=== PATIENT | male | born 1970 | race African-American/Black ===

== ENCOUNTER 2021-11-05 17:05 | Emergency (ER) | payer BC, OTHER ==
[2021-11-05 17:11] VITALS: BP 98/66; PULSE 62; RESP 18; TEMP 98; BMI 33.5
== END 2021-11-05 19:22 | disposition home or self-care (01) ==
LOC: JERFT 17:05
DX: M25.561 Pain in right knee (principal)
CPT/HCPCS: 73562-TC-RT-FY; 99284-25

== ENCOUNTER 2021-12-10 18:38 | Emergency (ER) | payer OTHER, BC ==
[2021-12-10 19:07] VITALS: BP 113/71; PULSE 68; RESP 18; TEMP 98.3; BMI 33.5
[2021-12-10] MEDS ORDERED: KETOROLAC TROMETHAMINE 30 MG/1 ML VIAL IM ONE (20:31)
== END 2021-12-10 20:51 | disposition home or self-care (01) ==
LOC: JERFT 18:38
DX: S83.92XA Sprain of unspecified site of left knee, initial encounter (principal); W01.0XXA Fall on same level from slipping, tripping and stumbling without subsequent striking against object, initial encounter
CPT/HCPCS: 73562-TC-LT-FY; 99283-25

== ENCOUNTER 2023-12-16 05:23 | Emergency (ER) | payer BC, OTHER ==
[2023-12-16 05:28] VITALS: BP 128/57; PULSE 62; RESP 20; TEMP 97.7; BMI 32.1
[2023-12-16] MEDS ORDERED: MECLIZINE HCL 12.5 MG TABLET ONE (06:39)
[2023-12-16] MEDS: MECLIZINE HCL 12.5 MG TABLET PO ONE (06:48)
[2023-12-16 07:03] LABS: BASO % 0.3 % (0-2.0); EOS % 1.6 % (0-4.5); HEMATOCRIT 40.5 % (35.4-49); HEMOGLOBIN 13.5 GM/dL (11.7-16.9); LYMPH % 21.7 % (8-40); MCH 31.2 pg (25.7-33.7); MCHC 33.3 g/dl (32.0-35.9); MEAN CELL VOLUME 93.5 fl (80-96); MEAN PLT VOLUME 7.2 fl (7.5-11.1); MONO % 5.1 % (3.8-10.2); NEUT % 71.3 % (42.8-82.8); PLATELET COUNT 241 10^3/uL (134-434); RBC 4.33 M/mm3 (4.00-5.60); RDW 13.9 % (11.9-15.9); WHITE BLOOD COUNT 6.2 K/mm3 (4.0-10.0)
[2023-12-16 07:23] LABS: POTASSIUM 4.3 mmol/L (3.5-5.1)
[2023-12-16 07:25] LABS: ALBUMIN 3.8 g/dl (3.4-5.0); CALCIUM 8.9 mg/dL (8.5-10.1)
[2023-12-16 07:26] LABS: BLOOD UREA NITROGEN 17.4 mg/dL (7-18)
[2023-12-16 07:28] LABS: CREATININE 0.8 mg/dL (0.55-1.3)
[2023-12-16 07:30] LABS: BILIRUBIN,TOTAL 0.4 mg/dL (0.2-1); INR 0.93 (0.83-1.09); PROTHROMBIN TIME (PATIENT) 10.7 SEC (9.7-13.0); TOT PROT 7.1 g/dl (6.4-8.2)
[2023-12-16 07:33] LABS: ACTIVATED PTT 30.6 SECONDS (25.2-36.5)
== END 2023-12-16 08:06 | disposition home or self-care (01) ==
LOC: JER 05:23
DX: R11.2 Nausea with vomiting, unspecified (principal)
CPT/HCPCS: 36415; 71046-TC-FY; 80053; 83690; 84484; 85025; 85610; 85730; 93005; 93010; 99285-25